=== PATIENT | female | born 1985 | race Asian ===

== ENCOUNTER 2016-11-26 10:04 | Inpatient (IN) | payer SELFPAY ==
[~2016-11-26] VITALS: Ht 160 cm; Wt 58.5 kg
[2016-11-28] MEDS ORDERED: IRON65TA11 PO (01:53)
[2016-11-28] MEDS ORDERED: LACTATED RINGERS 1,000 ML IV SCH (01:53)
[2016-11-28] MEDS ORDERED: CITRIC ACID/SODIUM CITRATE 30 ML UDC PO ONE (01:55)
[2016-11-28] MEDS ORDERED: IBUPROFEN 800 MG TAB PO PRN ×2 (01:55→06:10)
[2016-11-28 02:23] LABS: EOSINOPHILS # (AUTO) 0.1 K/uL (0-0.4); LYMPHOCYTES # (AUTO) 1.3 K/uL (2.5-16.5)
[2016-11-28 02:24] LABS: APPEARANCE,URINE SL CLOUDY (CLEAR); BILIRUBIN,URINE NEGATIVE (NEGATIVE); BLOOD, URINE NEGATIVE (NEGATIVE); COLOR,URINE YELLOW (YELLOW); LEUKOCYTE ESTERASE ,URINE 2+ (NEGATIVE); NITRITE, URINE NEGATIVE (NEGATIVE); PROTEIN,URINE NEGATIVE (NEGATIVE); UGLUCOSE NEGATIVE (NEGATIVE); UROBILINOGEN,URINE 0.2 EU/dL (0.2 - 1)
[2016-11-28 02:26] LABS: BASOPHILS % (AUTO) 0.7 % (0.0-2.0); EOSINOPHILS % (AUTO) 0.9 % (0.0-4.0); HEMATOCRIT 34.9 % (36-48); HEMOGLOBIN 11.7 g/dL (12.0-16.0); LYMPHOCYTES % (AUTO) 20.6 % (20.5-51.1); MEAN CORPUSCULAR HEMOGLOBIN 31 pg (27-31); MEAN CORPUSCULAR HGB CONC 33 g/dL (33-37); MEAN CORPUSCULAR VOLUME 94 fL (80-94); MONOCYTES # (AUTO) 0.6 K/uL (0.8-1.0); MONOCYTES % (AUTO) 9.8 % (1.7-9.3); NEUTROPHILS # (AUTO) 4.3 K/uL (1.8-7.7); PLATELET COUNT (AUTO) 113 K/uL (140-450); RED BLOOD CELL COUNT(AUTO) 3.71 MIL/uL (4.20-5.40); RED CELL DISTRIBUTION WIDTH 13.2 % (11.6-13.7); WHITE BLOOD COUNT (AUTO) 6.3 K/uL (4.8-10.8)
[2016-11-28 02:47] LABS: ALBUMIN 2.1 g/dL (3.4-5.0); ANION GAP 11.2 (8-16); CALCIUM 8.4 mg/dL (8.5-10.1); CARBON DIOXIDE 25.7 mmol/L (21-32); CREATININE 0.5 mg/dL (0.6-1.3); POTASSIUM 3.9 mmol/L (3.5-5.1); TOTAL BILIRUBIN 0.2 mg/dL (0.0-1.0); TOTAL PROTEIN, SERUM 5.5 g/dL (6.4-8.2)
[2016-11-28 04:16] LABS: BACTERIA,URINE 4+ /HPF (None Seen); MUCUS,URINE 4+ /LPF (None Seen); RBC,URINE 0-5 (RARE) /HPF (0-5); SQUAMOUS EPITHELIAL CELL,UR 60-80 /LPF (0-3 (FEW)); URINE AMORPHOUS URATE 3+ /HPF (None Seen); WBC,URINE 20-40 /HPF (0-5)
[2016-11-28] MEDS ORDERED: ceFAZolin 1,000 MG VIAL ONE (05:02)
[2016-11-28] MEDS ORDERED: CITRIC ACID/SODIUM CITRATE 30 ML UDC ONE (05:02)
[2016-11-28] MEDS ORDERED: OXYTOCIN 10 UNITS/ML VIAL ONE ×2 (05:27→06:00)
[2016-11-28] MEDS ORDERED: TRIAMCINOLONE 40 MG/ML 5ML VIAL ONE (05:27)
[2016-11-28] MEDS ORDERED: METHYLERGONOVINE 0.2 MG/ML AMP ONE ×2 (05:28→06:00)
[2016-11-28] MEDS ORDERED: MORPHINE PRES FREE 10 MG/10 ML AMP IV ONE (06:00)
[2016-11-28] MEDS ORDERED: ONDANSETRON 4 MG/2 ML VIAL ONE (06:00)
[2016-11-28] MEDS ORDERED: METOCLOPRAMIDE 10 MG/2 ML INJ VIAL ONE (06:00)
[2016-11-28] MEDS ORDERED: BUPIVACAINE-MPF 0.75% 10 ML VIAL INJ ONE (06:00)
[2016-11-28] MEDS ORDERED: HYDROcodone/APAP 5/325 MG 1 TAB TAB PO PRN (06:10)
[2016-11-28] MEDS ORDERED: oxyCODONE/APAP 5/325 MG 1 TAB TAB PO PRN (06:10)
[2016-11-28] MEDS ORDERED: TEMAZEPAM 15 MG CAP PO PRN (06:10)
[2016-11-28] MEDS ORDERED: METHYLERGONOVINE 0.2 MG/ML AMP IM PRN (06:10)
[2016-11-28] MEDS ORDERED: TRIMETHOBENZAMIDE 200 MG/2 ML SYR IM PRN (06:10)
[2016-11-28] MEDS ORDERED: MEASLES, MUMPS, AND RUBELLA 1 VIAL SQVAC PRN (06:10)
[2016-11-28] MEDS ORDERED: diphenhydrAMINE 50 MG/ML VIAL ONE (06:12)
[2016-11-28] MEDS ORDERED: OXYTOCIN 20 UNITS/LR PREMIX 1,000 ML IV ONE ×2 (06:12→08:17)
[2016-11-28] MEDS ORDERED: KETOROLAC 30 MG/ML VIAL IVP PRN (06:35)
[2016-11-28] MEDS ORDERED: ONDANSETRON 4 MG/2 ML VIAL IVP PRN (06:35)
[2016-11-28] MEDS ORDERED: NALOXONE 0.4 MG/ML VIAL IVP PRN ×2 (06:35)
[2016-11-28] MEDS ORDERED: OXYTOCIN 20 UNITS/LR PREMIX 1,000 ML IV SCH (06:35)
[2016-11-28] MEDS ORDERED: diphenhydrAMINE 50 MG/ML VIAL IVP PRN (06:35)
[2016-11-28] MEDS ORDERED: MEPERIDINE 25 MG/ML SYR ONE (06:41)
[2016-11-28] MEDS ORDERED: CARBOPROST 250 MCG/ML AMP IM ONE (07:13)
[2016-11-28] MEDS ORDERED: MISOPROSTOL 100 MCG TAB ONE ×2 (07:44→07:45)
[2016-11-28] MEDS ORDERED: MISOPROSTOL 100 MCG TAB VG SCH (07:57)
--- NOTE | 2016-11-28 08:01 | NUR ---
PATIENT HAS BEEN SCREENED AND CATEGORIZED LOW NUTRITION RISK. PATIENT WILL BE SEEN WITHIN 7 DAYS OF ADMISSION. 12/04/[address]
[2016-11-28] MEDS: OXYTOCIN 20 UNITS/LR PREMIX 1,000 ML IV SCH ×2 (14:52→21:46)
[2016-11-28] MEDS: DOCUSATE SOD/SENNA 50/8.6 MG 1 TAB PO SCH (21:00)
[2016-11-29] MEDS: OXYTOCIN 20 UNITS/LR PREMIX 1,000 ML IV SCH (06:13)
[2016-11-29 06:40] LABS: BASOPHILS % (AUTO) 0.3 % (0.0-2.0); EOSINOPHILS # (AUTO) 0.2 K/uL (0-0.4); EOSINOPHILS % (AUTO) 1.7 % (0.0-4.0); HEMATOCRIT 22.5 % (36-48); HEMOGLOBIN 7.7 g/dL (12.0-16.0); LYMPHOCYTES # (AUTO) 0.9 K/uL (2.5-16.5); LYMPHOCYTES % (AUTO) 8.3 % (20.5-51.1); MEAN CORPUSCULAR HEMOGLOBIN 32 pg (27-31); MEAN CORPUSCULAR HGB CONC 34 g/dL (33-37); MEAN CORPUSCULAR VOLUME 94 fL (80-94); MONOCYTES # (AUTO) 0.6 K/uL (0.8-1.0); MONOCYTES % (AUTO) 5.6 % (1.7-9.3); NEUTROPHILS # (AUTO) 9.6 K/uL (1.8-7.7); NEUTROPHILS % (AUTO) 84.1 % (42.2-75.2); PLATELET COUNT (AUTO) 113 K/uL (140-450); RED BLOOD CELL COUNT(AUTO) 2.39 MIL/uL (4.20-5.40); RED CELL DISTRIBUTION WIDTH 13.6 % (11.6-13.7); WHITE BLOOD COUNT (AUTO) 11.3 K/uL (4.8-10.8)
[2016-11-29] MEDS: SIMETHICONE 80 MG TAB.CHEW PO PRN (13:02)
[2016-11-29] MEDS: FERROUS SULFATE 325 MG TABEC PO SCH (17:43)
[2016-11-29] MEDS: DOCUSATE SOD/SENNA 50/8.6 MG 1 TAB PO SCH (21:37)
[2016-11-30] MEDS: SIMETHICONE 80 MG TAB.CHEW PO PRN (09:32)
[2016-11-30] MEDS: FERROUS SULFATE 325 MG TABEC PO SCH ×3 (09:32→17:53)
[2016-11-30] MEDS: DOCUSATE SOD/SENNA 50/8.6 MG 1 TAB PO SCH (21:19)
[2016-12-01] MEDS: FERROUS SULFATE 325 MG TABEC PO SCH ×2 (08:54→12:55)
== END 2016-12-01 16:00 | disposition home or self-care (01) | DRG 765 ==
LOC: MFCC 11-28 00:30
PROVIDERS: ADMIT Obstetrics & Gynecology; ATTEND Obstetrics & Gynecology
PROC: 10D00Z1 Extraction of Products of Conception, Low, Open Approach (ICD-10-PCS; principal; 2016-11-28 06:00)
PROC: 3E0234Z Introduction of Serum, Toxoid and Vaccine into Muscle, Percutaneous Approach (ICD-10-PCS; 2016-11-29)
DX: O32.2XX2 Maternal care for transverse and oblique lie, fetus 2 (principal); O99.12 Other diseases of the blood and blood-forming organs and certain disorders involving the immune mechanism complicating childbirth; O30.003 Twin pregnancy, unspecified number of placenta and unspecified number of amniotic sacs, third trimester; D69.6 Thrombocytopenia, unspecified; Z37.2 Twins, both liveborn; Z23 Encounter for immunization; Z3A.37 37 weeks gestation of pregnancy; O09.03 Supervision of pregnancy with history of infertility, third trimester
CPT/HCPCS: 36415; 80053; 81001; 85025; 86592; 86886; 86900; 86901; 87086; 90715; J0690; J1200; J2175; J2210; J2270; J2405; J2590; J2765; J3301; J3490; J7060; J7120